=== PATIENT | female | born 1995 | race Caucasian/White ===

== ENCOUNTER 2017-03-11 11:48 | Emergency (ER) | payer MEDICAID ==
[~2017-03-11] VITALS: Ht 157.5 cm; Wt 55.0 kg
[2017-03-11] MEDS ORDERED: SODIUM CHLORIDE 0.9% 1,000 ML IV ONE (11:49)
[2017-03-11] MEDS ORDERED: SODIUM CHLORIDE FLUSH 10ML SYR IVF ONE (12:00)
[2017-03-11 12:20] LABS: HEMATOCRIT 44.8 % (34.6-47.8); HEMOGLOBIN 14.7 g/dL (11.7-16.4); WHITE BLOOD COUNT 12.6 x10^3/uL (3.4-10)
[2017-03-11 12:22] LABS: ASPARTATE AMINO TRANSFERASE 13 U/L (15-37); BLOOD UREA NITROGEN 12 mg/dL (7-18)
[2017-03-11 14:57] VITALS: BP 115/76
== END 2017-03-11 15:00 | disposition home or self-care (01) ==
LOC: ED 14:56
DX: N83.291 Other ovarian cyst, right side (principal)
CPT/HCPCS: 36415; 76830; 80053; 84703; 85025; 85379; 99285